=== PATIENT | female | born 1955 | race Caucasian/White ===

== ENCOUNTER 2025-07-13 05:16 | Observation (INO) ==
--- NOTE | 2025-07-08 09:05 | Anesthesiology Consultation ---
Date of Service July 08, 2025 Assessment & Plan (1) Encounter for pre-operative examination: Plan - check BSG am DOS. - semaglutide instructions: Patient informed at PAT visit to stop 7 days prior to surgery. - Outpatient joint assessment: Patient is currently scheduled for inpatient pathway. If re-evaluated and patient/surgeon requests outpatient pathway, patient is not a recommended candidate for outpatient joint program. - Procedure r/s to 07/13/25 as patient did not stop Ozempic or Jardiance per surgeon's office who advised patient is aware of necessary intervals. - Per bucket wash operator on 07/07/25: No known infectious disease contacts, current infectious disease symptoms in past 10 days or COVID positive test result in the past 30 days. Chart Review Chart Review: Acceptable Risk for Surgery and Patient NOT seen in Pre Admission Testing History Surgery Operation Date: 07/13/25 13:50 Proposed Procedures p Right Total Shoulder Arthroplasty Reverse - Jim Mcelroy MD Height/Weight Height: 5 ft 3 in Weight: 90.718 kg Allergies Allergy/AdvReac Type Severity Reaction Status Date / Time amoxicillin Allergy Unknown Per Verified 07/07/25 15:10 records, patient unaware simvastatin [From Zocor] AdvReac Unknown Hands got Verified 07/07/25 15:10 "stiff"/"calf pain" per S PCP records Medications Home Medications Medication Instructions Recorded Confirmed Last Taken acetaminophen 500 mg tablet 1,000 mg PO UD PRN Pain 06/17/25 07/07/25 Unknown (Tylenol Extra Strength) empagliflozin 25 mg tablet 25 mg PO QAM 06/17/25 07/07/25 06/27/25 10:00 (Jardiance) furosemide 20 mg tablet 20 mg PO QAM 06/17/25 07/07/25 06/30/25 10:00 isosorbide mononitrate 30 mg 30 mg PO QAM 06/17/25 07/07/25 06/30/25 10:00 tablet,extended release 24 hr losartan 50 mg tablet 25 mg PO HS 06/17/25 07/07/25 06/30/25 22:00 metformin 500 mg tablet 1,000 mg PO BID 06/17/25 07/07/25 06/30/25 22:00 metoprolol succinate 25 mg 12.5 mg PO HS 06/17/25 07/07/25 06/30/25 22:00 tablet,extended release 24 hr metoprolol succinate 25 mg 25 mg PO QAM 06/17/25 07/07/25 07/01/25 03:30 tablet,extended release 24 hr rosuvastatin 40 mg tablet 40 mg PO QAM 06/17/25 07/07/25 06/30/25 10:00 aspirin 81 mg capsule 81 mg PO QAM 07/07/25 07/07/25 Unknown semaglutide 1 mg/dose (4 mg/3 mL) 1 mg subcut WK 07/07/25 07/07/25 07/04/25 subcutaneous pen injector (Ozempic) Past Medical History Medical History CAD (coronary artery disease) 2020 > stents x2 CKD (chronic kidney disease) Stage 3a per PCP records Diabetes mellitus, type 2 NIDDM + GLP-1 weekly HTN (hypertension) Humerus fracture Right proximal humerus fracture (after mechnical fall 05/03/25) Hyperlipidemia Past Family History Family History Other No family history of adverse response to anesthesia Past Surgical History Surgical History History of anal fissures "Minor surgery" History of cardiac cath 2020 > stents x2 History of colonoscopy History of tonsillectomy Social History Smoking Status: Never smoker Do You Dip or Chew Tobacco: No Hx Alcohol Use: No Hx Substance Use: No substance use type: does not use Lab Results Anesthesia Preop Results Results Anesthesia Widget: WBC 8.28 K/ul (4.8-10.8) 06/22/25 Hgb 11.4 g/dl (12.0-16.0) L 06/22/25 Hct 34.2 % (37.0-47.0) L 06/22/25 Plt 314 K/uL (130-400) 06/22/25 Na 140 mmol/L (136-145) 06/22/25 K 4.5 mmol/L (3.5-5.1) 06/22/25 Cl 105 mmol/L (98-107) 06/22/25 CO2 29 mmol/L (21-32) 06/22/25 BUN 21 mg/dl (6-23) 06/22/25 Creat 0.90 mg/dl (0.6-1.2) 06/22/25 Glucose Level 95 mg/dl (70-99(Fasting)) 06/22/25 POC Glucose 96 mg/dl (70-99) 07/01/25 PT 11.0 Seconds (9.0-12.0) 06/22/25 PTT 28 Seconds (21-31) 06/22/25 INR 1.0 (0.9-1.1) 06/22/25 HA1c 5.3 % (4.5-5.6) 06/22/25 Urine Color Yellow 06/22/25 Urine Appearance Clear (Clear) 06/22/25 Urine pH 6.0 (4.5-7.5) 06/22/25 Urine Specific Harman 1.019 (1.000-1.030) 06/22/25 Urine Protein Negative (Negative) 06/22/25 Urine Glucose (UA) 3+ (Negative) H 06/22/25 Urine Ketones Negative (Negative) 06/22/25 Urine Blood Negative (Negative) 06/22/25 Urine Nitrite Negative (Negative) 06/22/25 Urine Bilirubin Negative (Negative) 06/22/25 Urine Urobilinogen Negative (Negative) 06/22/25 Urine Leukocyte Esterase Negative (Negative) 06/22/25 Blood Type O Positive 06/22/25 Antibody Screen NEGATIVE 06/22/25 Testing Electrocardiogram Date: 04/10/25 Sinus rhythm with 1st degree AV block, rate 71 bpm Left axis deviation Nonspecific intraventricular conduction block Possible anterolateral infarct cited on or before 05/07/2017 EKG No significant change vs 02/27/2023 EKG Echocardiogram Date: 04/11/25 EF 50-54% Mild aortic valve regurgitation Mild aortic valve sclerosis without stenosis Mild cLVH Grade I diastolic dysfunction Stress Test Date: 04/11/25 Per original anesthesia note 06/22/25: "[facility] discharge summary 04/11/25: "Nuclear stress test was limited but did not show any overt ischemia and ECHO showed preserved LVEF." [facility] PCP hospital f/u visit 04/18/25: "Patient's chest pain resolved and has not returned since hospital discharge. Her stress test and echocardiogram did not reveal any ischemia and showed a normal ejection fraction. It is thought that her chest pain is more related to her anxiety... During her admission, she unde rwent a stress test that returned normal results" Multiple attempts to obtain official stress test report from [facility] unsuccessful, may have "lost" report per statistical secretary notation." Cardiac Catheterization Date: 04/18/20 Severe three-vessel CAD: Mid LAD 90%; proximal OM1 70%; mid RCA 100% TECHNICAL SERVICES ANALYST with LR collaterals. PCI to mid LAD stenosis with [place] GALLITO. PCI to LCx into OM stenosis with [place] GALLITO. Mid RCA is 100% occluded with LR collaterals. Other Testing Chest CT 05/03/25 Comminuted fracture of the right humeral head and surgical neck. Poor inspiration with mild dependent atelectasis in both lung bases. No areas of consolidation. No effusions or pneumothoraces. Degenerative changes in the thoracic spine but no acute fracture of the thoracic spine or ribs. "This does not exclude bone bruising or injury to the anterior costochondral junctions. If clinically indicated recommend more sensitive evaluation with a nuclear medicine bone scan."
[2025-07-13] MEDS: LR 15ML/HR IV SCH (06:01)
[2025-07-13] MEDS: LR 60ML/HR IV SCH (06:01)
[2025-07-13] MEDS: METOCLOPRAMIDE HCL 10 MG TABLET PO SCH (06:01)
[2025-07-13] MEDS: CeleBREX 200 MG CAP PO SCH (06:01)
[2025-07-13] MEDS: ACETAMINOPHEN 500 MG TAB PO SCH ×2 (06:01→14:01)
[2025-07-13] MEDS: FAMOTIDINE 20 MG TAB PO SCH (06:01)
[2025-07-13] MEDS: GABAPENTIN 300 MG CAP PO SCH (06:01)
[2025-07-13] MEDS ORDERED: LIDOCAINE 2% 2 ML VIAL/AMP(20MG/ML) INFIL ONE ×2 (06:24→06:33)
[2025-07-13] MEDS ORDERED: PROPOFOL IV EMULSION 10 MG/ML 20 ML VIAL IV ONE (06:24)
[2025-07-13] MEDS ORDERED: ROCURONIUM BROMIDE 10 MG/ML 5 ML VIAL IV ONE ×2 (06:24→06:25)
[2025-07-13] MEDS ORDERED: MIDAZOLAM HCL 1 MG/ML 2ML VIAL ONE (06:25)
[2025-07-13] MEDS ORDERED: BUPIVACAINE 0.5 % 5 MG/1 ML PF 10ML VIAL ONE (06:33)
--- NOTE | 2025-07-13 07:08 | History & Physical Bridge Note ---
Date of Service July 13, 2025 History & Physical Bridge Note I have examined the patient, reviewed the History & Physical and in the interval since the performance of the History & Physical I have noted the following changes of clinical significance: no changes noted
[2025-07-13] MEDS: TRANEXAMIC ACID 1,000 MG **IV Pre-op IV SCH (07:11)
[2025-07-13] MEDS ORDERED: ONDANSETRON INJ 2 MG/ML 2 ML VIAL IV PRN ×2 (07:57→12:44)
[2025-07-13] MEDS ORDERED: ATROPINE SULFATE 0.1 MG/ML 10ML SYR IV PRN (07:57)
[2025-07-13] MEDS ORDERED: PROMETHAZINE HCL 6.25 MG in SODIUM CHLORIDE 0.9% 50 ML IV PRN (07:57)
[2025-07-13] MEDS ORDERED: PHENYLEPHRINE HCL 10 MG/ML VIAL ONE (08:08)
[2025-07-13] MEDS ORDERED: DEXAMETHASONE SOD INJ 4 MG/ML VIAL ONE (09:57)
[2025-07-13] MEDS ORDERED: ONDANSETRON INJ 2 MG/ML 2 ML VIAL ONE (09:57)
--- NOTE | 2025-07-13 11:18 | Post Operative Brief Note ---
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 and ruptured biceps tendon long head I identified the patient and participated in the time-out.: Yes Procedure Operation Date: 07/13/25 07:00 Actual Procedures p Right Fractured Reverse Total Shoulder Arthroplasty(Right), osteotomy and repair and bone grafting tuberosities- Jim Mcelroy MD Surgeon Jim Mcelroy MD Services Tech Nigel BOUCHER Estimated Blood Loss 50 Findings Consistent with Post-Op Diagnosis Specimens Bone fragments humerus Drains Hemovac Drain Anesthesia Type General Regional Complications none Disposition Disposition: Recovery Room Overlapping Procedure I was immediately available: during the entire case.
--- NOTE | 2025-07-13 11:52 | Operative Report ---
Post Operative Report Pre & Post Diagnosis Operation Date: 07/13/25 07:00 Pre-Op Diagnosis: Right Shoulder comminuted and displaced proximal Humerus Fracture with nonunion Post-Op Diagnosis: Right Shoulder comminuted and displaced proximal humerus fracture with nonunion and proximal biceps tendon rupture. I identified the patient and participated in the time-out.: Yes Procedure Operation Date: 07/13/25 07:00 Actual Procedures Right Fractured Reverse Total Shoulder Arthroplasty requiring osteotomy of tuberosities and repair and bone grafting of tuberosities and proximal implant.- Jim Mcelroy MD Surgeon Jim Mcelroy MD Machine Wood Sander Nigel BOUCHER Estimated Blood Loss 50 Findings Consistent with Post-Op Diagnosis Specimens Bone fragments Drains 2 Hemovac Anesthesia Type General Regional Complications none Disposition Disposition: Recovery Room Indications 69-year-old female who injured her right shoulder sustained a comminuted proximal humerus fracture which was initially treated with nonsurgical conservative management but the shaft displaced anteriorly with 100% displacement and there was a fair amount of comminution noted on CT scan. This went on to nonunion with nonfunctional use of her right arm due to rotational instability. Description of Procedure Patient was taken to the operating room anesthetized under regional block and general anesthetic. Patient was placed in the beachchair position. A towel roll was placed under the medial border of the right scapula. The head was placed on a foam headrest. Protective eyewear was placed. SCDs were placed. All extremities were well-padded. Shoulder exam demonstrated anterior prominence consistent with the shaft being displaced anterior to the coracoid and rotational instability consistent with nonunion. There was moderate obesity. The shoulder was sterilely prepped and draped in usual sterile fashion with ChloraPrep. An anterior deltopectoral approach was performed. The skin was incised sharply in longitudinal fashion. Subcutaneous flaps were elevated. The deltopectoral interval was identified. The cephalic vein was not present. The deltopectoral interval was developed. It was noted that the shaft of the humerus was underlying the deltoid and displaced anterior to the coracoid with some of the lower conjoined tendon draped over the fracture site. 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 The conjoined tendon which was enveloped in scar tissue was was identified and carefully dissected away from the scar tissue and underlying subscapularis tendon and retracted medially. The upper 1 cm of the pectoralis was released for inferior exposure. The biceps tendon findings demonstrated long head biceps was absent. There was scar tissue around the rotator cuff and this was dissected free of the rotator cuff. The humeral head neck was comminuted and the humeral head was internally rotated and abducted. The humeral head fragment was osteotomized from the tuberosity fragments using an artist chisel type osteotome. #1 Vicryl's traction sutures were placed around the greater tuberosity posteriorly and separately around the lesser tuberosity anteriorly. The supraspinatus was released and the teres minor and infraspinatus were maintained intact to the bone fragment of the greater tuberosity posteriorly. The humeral head was then removed and some comminuted fragments were removed. The glenoid findings demonstrated normal glenoid with intact articular cartilage and normal labrum with absent biceps. The Tornier reverse total shoulder replacement was utilized with the Tornier fracture stem. The shaft had more intact bone anteriorly than posteriorly with a slight oblique bone loss to the fracture. The canal was patent and intact. There was fibrous tissue that was resected from within the canal and the edges of the proximal shaft were all fully identified using a subperiosteal dissection around the shaft with a Madsen elevator to mobilize the shaft. Attention was then taken to the glenoid exposure which was performed removing the labrum and performing anterior-inferior and posterior capsule release and triceps tendon release. Dissection was performed on bone to protect the axillary nerve. Retractors were placed to expose the glenoid. Patient had a very small glenoid so we used a 25 mm baseplate.. Any remaining cartilage on the glenoid was removed with a curette. The guide for the aequalis baseplate was positioned with 10 degrees inferior tilt and central drill hole was made. The reamer was used. The bone quality was good. The central drill hole was widened for the post. The glenoid was irrigated with pulsatile lavage saline solution. The 25 millimeter aequalis hydroxyapatite-coated baseplate was impacted into position with excellent fit. This was transfixed with superior and inferior locking screws and anterior posterior compression screws. The 36 x 25 glenoid sphere was impacted onto the baseplate and the security screw tightened. This was checked for stability and was intact and stable. Attention taken to the humerus. Humeral canal was reamed and size 9 millimeters stem was chosen. Height of the implant when impacted was documented and rotation was placed with the rotational michelle in line with the forearm. Trial reduction demonstrated that a size 12 mm reversed trial polyethylene insert gave stability and no shuck. The trial was removed and the canal was irrigated with pulsatile lavage saline solution. Four #5 FiberWire sutures were first passed around the posterior greater tuberosity fragments. Two #5 FiberWire sutures were placed through drill holes into the shaft and docked for later tying. The cement restrictor was placed at the appropriate depth in the canal of the humerus. Bone graft was harvested from the humeral head and the bone graft inserted into the hole in the humeral implant. The 9 x 130 mm aequalis fracture reversed stem humeral implant was cemented into position with Pal[place]os G cement. After the cement cured the 36/12 mm reversed polyethylene insert was impacted into the humeral implant. 4 tails of the suture were passed around the implant prior to reducing it to the glenoid sphere. Joint was irrigated with Irrisept and saline. The tuberosities posteriorly were then sutured to the stem after placing bone graft between the hydroxyapatite portion of the stem the shaft and the tuberosity fragments. The arm was rotated and the posterior tuberosities were secured with rotation. Sutures were then passed around the lesser tuberosity fragments through the subscapularis tendon and then bone graft was placed underlying these fragments and the humeral implant and the shaft area. The other two #5 FiberWire sutures were tied around the lesser tuberosity fragment suturing that to the shaft and the lesser to the greater tuberosity fragments together. The Vicryl sutures were tied to each other for added security. The shaft sutures were placed in [id number] fashion around the tuberosity fracture fragments anteriorly and posteriorly to secure the tuberosity fracture fragments to the shaft. The repair was stable with passive range of motion and range of motion was 120 degrees forward flexion 90 degrees abduction and 30 degrees external rotation and 60 degrees internal rotation without tension on repair. The pectoralis tendon was repaired with [id number] #1 Vicryl suture. After further Irrisept and saline irrigation 2 Hemovac drains were brought out laterally. The deltopectoral interval was repaired with [id number] #1 Vicryl sutures. The subcutaneous tissue closed into 2-0 Vicryl sutures. Skin was closed with radha. Sterile dressings were applied and a shoulder immobilizer. Nigel BOUCHER was my educational program assistant and assisted throughout the procedure including prepping draping arm positioning soft tissue retraction suture management wound closure and postop care the patient. I attest to the content of the Intraoperative Record and any orders documented therein. Any exceptions are noted below.
--- NOTE | 2025-07-13 11:59 | Anesthesiology Progress Note ---
Date of Service July 13, 2025 Anesthesia Post Procedure Vital Signs Vital Signs: Temp Pulse Pulse Resp BP Pulse Ox O2 Del Method 07/13/25 11:50 36.3 C L 67 19 135/72 94 Room Air 07/13/25 11:40 72 19 134/75 95 Room Air 07/13/25 11:34 36 C L 76 16 138/79 96 Oxymask 07/13/25 05:49 36.5 C 71 20 148/76 H 100 Room Air O2 Flow Rate 07/13/25 11:50 07/13/25 11:40 07/13/25 11:34 6 07/13/25 05:49 Transfer of Care Handoff Completed per policy Notes Mental Status: alert / awake / arousable and participated in evaluation Patient Amnestic to Procedure: Yes Nausea / Vomiting: adequately controlled Pain: adequately controlled Airway Patency, RR, SpO2: stable & adequate BP & HR: stable & adequate Hydration State: stable & adequate Anesthetic Complications: no major complications apparent
--- NOTE | 2025-07-13 12:42 | XRay Report ---
XR shoulder RT min 2V routine CLINICAL HISTORY: Post shoulder surgery COMPARISON: None FINDINGS: Right shoulder prosthesis shows no hardware complication. Skin radha are present. Postop erative drain is present. There is expected soft tissue gas. IMPRESSION: Unremarkable postoperative exam. ACT 112: Negative or not required by law. Electronically signed by: Shalom Canada M.D. 07/13/2025 12:41 PM
[2025-07-13] MEDS ORDERED: HYDROmorphone INJ 0.5 MG/0.5 ML SYR IV PRN (12:44)
[2025-07-13] MEDS ORDERED: METOCLOPRAMIDE HCL INJ 5 MG/ML 2 ML VIAL IV PRN (12:44)
[2025-07-13] MEDS ORDERED: diphenhydrAMINE Capsule 25 MG CAP PO PRN (12:44)
[2025-07-13] MEDS ORDERED: KETOROLAC TROMETHAMINE 15 MG/ML VIAL IV PRN (12:44)
[2025-07-13] MEDS ORDERED: ALUMINUM/MAGNESIUM SUSP 30 ML UDC PO PRN (12:44)
[2025-07-13] MEDS ORDERED: NALOXONE HCL 0.4 MG/1 ML VIAL/CARP IV PRN (12:44)
[2025-07-13] MEDS ORDERED: PHARMACY GLYCEMIC MGMT CONSULT PRN (12:44)
[2025-07-13] MEDS ORDERED: MAGNESIUM HYDROXIDE SUSP 30 ML UDC PO PRN (12:44)
[2025-07-13] MEDS: SODIUM CHLORIDE 0.9% 1,000 ML IV SCH (13:08)
--- NOTE | 2025-07-13 13:17 | Consultation ---
Date of Consultation July 13, 2025 Assessment & Plan (1) S/P shoulder surgery: (2) Fracture, humerus, proximal: Post op day# 0 S/P right reverse total shoulder arthroplasty requiring osteotomy of tuberosities and repair and bone grafting of tuberosities and proximal implant by Dr Mcelroy EBL #50ml Pain management per ortho Wound management per ortho PT/OT as appropriate DVT prophylaxis per ortho Incentive spirometry Monitor H&H for acute blood loss anemia; Pre-op Hgb: 11.4 (3) HTN (hypertension): (4) Hyperlipidemia: (5) CAD (coronary artery disease): CAD S/P Stents in 2019 BP stable Hold losartan tonight and reassess BP Continue metoprolol succinate, aspirin, rosuvastatin, isosorbide (6) Chronic combined systolic (congestive) and diastolic (congestive) heart failure: Currently appears euvolemic 04/11/25 echo: EF: 50-54%, mild aortic regurgitation Hold Lasix and reassess tomorrow (7) Diabetes mellitus, type 2: A1c: 6.5 on 04/11/25 Hold home metformin, Jardiance, Ozempic Glycemic pharmacist managing. Appreciate glycemic management (8) CKD (chronic kidney disease), stage III: Baseline Cr: 1.0-1.2 per outpatient chart review Monitor renal functions Would avoid nephrotoxic agents including NSAIDs as able (9) GERD (gastroesophageal reflux disease): Continue PPI DVT Prophylaxis SCDs per ortho Disposition per primary service Follows with Jae Calabrese PA-C for routine care Pt was seen and care coordinated with Dr Fleming. See addendum I spent a total of 45 minutes reviewing notes, outpatient records, labs, medication, coordinating, documenting and providing care for this patient excluding time spent in the performance of separately billed services and excluding time spent by another provider/QHP. Supervising Physician Co-Signing Physician Notes Patient seen and examined at bedside. Patient doing well today post op, family in room, denies pain. On exam, right shoulder in slight with drain present, patient laying comfortably. Mild bilateral LE tenderness to palpation without edema. Post op xray of shoulder unremarkable. Patient post op day 0 for shoulder arthroplasty with osteotomy of tuberosities and repair and bone grafting of tuberosities and proximal implant by Dr Mcelroy. Monitor Hgb, leukocytosis, creatinine post op. Encourage ambulation and pain control as appropriate. Medication regiment post op simplified to reduce polypharmacy. I have seen and discussed the case with the collaborating advanced practitioner. I agree with the above H&P. I have reviewed and confirmed the patients medical history, the findings on physical examination, and the patients diagnosis and treatment plan with Nighat Art PA-C and agree with the information documented. I spent a total of 15 minutes coordinating, documenting, and providing care for this patient excluding time spent in the performance of separately billed services. All of the aforementioned completed outside of collaborating with the assigned advanced practitioner for a full treatment plan. I have reviewed the advanced practitioner's documentation, and I agree with, and take responsibility for the plan of care History of Present Illness Requesting Physician: Dr Mcelroy Reason for Consultation: Post op medical management Attending Physician: Jim Mcelroy MD History of Present Illness Patient is 69-year-old female with PMH DM II, HTN, dyslipidemia, CAD s/p stent, chronic combined heart failure, moderate persistent asthma, CKD III, anxiety seen in medical consultation s/p right fractured reverse total shoulder arthroplasty requiring osteotomy of tuberosities and repair and bone grafting of tuberosities and proximal implant by Dr Mcelroy today. Post op patient reports is doing well and pain controlled. Still having some right arm paresthesias. Reports is right hand dominant. Reports last BM 3 days ago and has chronic constipation. Denies fever/chills, diaphoresis, N/V/D, BAUMANN, dizziness, neck pain, CP, SOB, palpitations, cough, abdominal pain, extremity edema, rashes, urinary symptoms. Allergies Allergy/AdvReac Type Severity Reaction Status Date / Time amoxicillin Allergy Unknown Per Verified 07/13/25 05:43 records, patient unaware simvastatin [From Zocor] AdvReac Unknown Hands got Verified 07/13/25 05:43 "stiff"/"calf pain" per [facility] PCP records Home Medications Medication Instructions Recorded Confirmed Type acetaminophen 500 mg tablet 1,000 mg PO UD PRN Pain 06/17/25 07/13/25 History (Tylenol Extra Strength) empagliflozin 25 mg tablet 25 mg PO QAM 06/17/25 07/13/25 History (Jardiance) furosemide 20 mg tablet (Lasix) 20 mg PO QAM 06/17/25 07/13/25 History isosorbide mononitrate 30 mg 30 mg PO QAM 06/17/25 07/13/25 History tablet,extended release 24 hr losartan 50 mg tablet 25 mg PO HS 06/17/25 07/13/25 History metformin 500 mg tablet 1,000 mg PO BID 06/17/25 07/13/25 History metoprolol succinate 25 mg 12.5 mg PO HS 06/17/25 07/13/25 History tablet,extended release 24 hr metoprolol succinate 25 mg 25 mg PO QAM 06/17/25 07/13/25 History tablet,extended release 24 hr rosuvastatin 40 mg tablet (Crestor) 40 mg PO QAM 06/17/25 07/13/25 History aspirin 81 mg capsule 81 mg PO QAM 07/07/25 07/13/25 History semaglutide 1 mg/dose (4 mg/3 mL) 1 mg subcut WK 07/07/25 07/13/25 History subcutaneous pen injector (Ozempic) acetaminophen 500 mg tablet 1,000 mg (2 x 500 mg) PO Q8H #90 07/13/25 07/13/25 Rx (Tylenol Extra Strength) tabs aspirin 81 mg tablet,delayed 81 mg PO BID #60 tabs 07/13/25 07/13/25 Rx release cefadroxil 500 mg capsule 500 mg PO Q12H #28 caps 07/13/25 07/13/25 Rx celecoxib 200 mg capsule (Celebrex) 200 mg PO Q12H #60 caps 07/13/25 07/13/25 Rx oxycodone 5 mg tablet 5 mg PO Q4H PRN pain #30 tabs 07/13/25 07/13/25 Rx Patient History Medical History (Updated 07/13/25 @ 13:39 by Nighat Art PA-C) GERD (gastroesophageal reflux disease) Chronic combined systolic (congestive) and diastolic (congestive) heart failure CKD (chronic kidney disease), stage III Diabetes mellitus, type 2 NIDDM + GLP-1 weekly CKD (chronic kidney disease) Stage 3a per PCP records CAD (coronary artery disease) 2020 > stents x2 Humerus fracture Right proximal humerus fracture (after mechnical fall 05/03/25) Hyperlipidemia HTN (hypertension) Surgical History (Updated 07/13/25 @ 13:52 by Nighat Art PA-C) Status post reverse arthroplasty of right shoulder right fractured reverse total shoulder arthroplasty requiring osteotomy of tuberosities and repair and bone grafting of tuberosities and proximal implant by Dr Mcelroy 07/13/25. [facility] History of anal fissures "Minor surgery" History of tonsillectomy History of colonoscopy History of cardiac cath 2020 > stents x2 Family History Other No family history of adverse response to anesthesia Social History Smoking Status: Never smoker Second Hand Exposure: No; Do You Dip or Chew Tobacco: No; Tobacco Cessation Education Requested by Patient: No Hx Alcohol Use: No Hx Substance Use: No Preferred Language: [place] Communication Ability: Effective Domestic Violence Counselor Required: No Beliefs That Will Affect Care: None Current Living Situation: Family Current Living Situation Comment: live with my sister Other Information That Helps Us Care for You: No Feels Safe at Home: Yes Safety Concerns: Feels Safe At This Time Assistive Devices: Brace/Splint/Immobilizer, Denture - Upper, Glasses and Hearing Aid - Bilateral Review of Systems Review of Systems: All systems reviewed & are unremarkable except as noted in HPI & below Physical Exam Physical Exam: General: no distress, obese female Head: normocephalic, atraumatic Eyes: conjunctiva non-injected, anicteric ENT: normal inspection external ears, nose, mucous membranes moist Neck: supple, trachea midline Lungs: clear, no respiratory distress, no wheezing/rhonchi/rales CV: RRR, no pretibial edema Abd: normal BS, soft, non-tender Ext: RUE: +sling in place, +surgical dressing in place is dry. Sensation to light touch fingers intact, brisk capillary refill, right internet ecommerce specialist strength in place. BLE no cyanosis, no calf tenderness Neuro: A&O x 3, no focal deficits noted, normal affect Skin: warm, dry Results & Data Vital Signs (Past 12 Hours) Vital Signs Temp Pulse Pulse Resp BP Pulse Ox O2 Del Method 07/13/25 12:44 36.5 C 68 18 120/74 94 Room Air 07/13/25 12:30 66 18 130/65 94 Room Air 07/13/25 12:15 68 17 148/76 H 95 Room Air 07/13/25 12:00 69 15 127/65 94 Room Air 07/13/25 11:50 36.3 C L 67 19 135/72 94 Room Air 07/13/25 11:40 72 19 134/75 95 Room Air 07/13/25 11:34 36 C L 76 16 138/79 96 Oxymask 07/13/25 05:49 36.5 C 71 20 148/76 H 100 Room Air O2 Flow Rate 07/13/25 12:44 07/13/25 12:30 07/13/25 12:15 07/13/25 12:00 07/13/25 11:50 07/13/25 11:40 07/13/25 11:34 6 07/13/25 05:49 Diagnostic Findings Shoulder X-Ray 07/13/25 11:39 XR shoulder RT min 2V routine CLINICAL HISTORY: Post shoulder surgery COMPARISON: None FINDINGS: Right shoulder prosthesis shows no hardware complication. Skin radha are present. Postoperative drain is present. There is expected soft tissue gas. IMPRESSION: Unremarkable postoperative exam. ACT 112: Negative or not required by law. Electronically signed by: Shalom Canada M.D. 07/13/2025 12:41 PM (2) Fracture, humerus, proximal Encounter type: initial encounter Fracture alignment: displaced Fracture mo rphology: other fracture Fracture type: closed Laterality: right Qualified Code(s): S42.291A - Other displaced fracture of upper end of right humerus, initial encounter for closed fracture
[2025-07-13 13:24] VITALS: RESP 16
[2025-07-13] MEDS: BUPIVACAINE LIPOSOME 1.3% 133 MG/10 ML VIAL ONE (13:27)
[2025-07-13] MEDS ORDERED: DEXTROSE 50% 50 ML SYRINGE IV PRN (13:30)
[2025-07-13] MEDS ORDERED: GLUCOSE 10 TAB/TUBE PO PRN (13:30)
[2025-07-13] MEDS ORDERED: GLUCAGON FOR INJ 1 MG VIAL SQ PRN (13:30)
[2025-07-13] MEDS ORDERED: GLUCOSE 40% GEL 15 GM TUBE PO PRN (13:30)
[2025-07-13] MEDS ORDERED: CARBOHYDRATES FOR HYPOGLYCEMIA PO PRN (13:30)
--- NOTE | 2025-07-13 14:19 | Pharmacy Report ---
Pharmacy Glycemic Short Note 2 - Date of Service July 13, 2025 - Glycemic Short BSG Results (Last 24 hours): 07/13/25 07/13/25 05:38 11:38 POC Glucose 105 H 91 OUTPATIENT ANTIDIABETIC REGIMEN: * Metformin * Empagliflozin * Semaglutide A1c = 5.3% ASSESSMENT: * Cindy is POD# 0 s/p right reverse total shoulder arthroplasty * Home anti-diabetic agents have been held in the setting of surgery. * Given A1c of 5.3% and baseline BSG of 105 and 91 mg/dL, I suspect patient may not require basal insulin. Will order a one time, conservative dose per scale for bedtime. Further need for basal insulin can be determined tomorrow. * Start Novolog based on weight/stress 2 PLAN FOR INPATIENT GLYCEMIC CONTROL: * Hold outpatient oral diabetes medications * Basal insulin * Lantus 0-10 units units SQ BID (10 units if BSG is 160 or more) * Bolus insulin * NovoLog per scale ACHS or Q6hrs while NPO * Goal Range: Low 110 mg/dL - High 140 mg/dL * Correction Factor: 25 mg/dL/unit * Nutritional / Prandial insulin per carb ratio of 1 unit per 10 grams CHO consumed
[2025-07-13] MEDS: INSULIN ASPART PER UNIT CHARGE SC SCH (17:06)
[2025-07-13] MEDS: TRANEXAMIC ACID / 0.7% NACL 1,000 MG/100 ML BAG IV SCH (17:10)
[2025-07-13] MEDS: METOPROLOL SUCC 25MG EXT REL TAB PO SCH (20:41)
[2025-07-13] MEDS: LANTUS PER UNIT CHARGE SC SCH (20:43)
[2025-07-13] MEDS: DOCUSATE SODIUM 100 MG CAP PO SCH (20:47)
[2025-07-13] MEDS: SENNA 8.6 MG TAB PO SCH (20:47)
[2025-07-13] MEDS ORDERED: LOSARTAN POTASSIUM 25 MG TAB PO SCH (21:00)
[2025-07-14 07:06] LABS: Hematocrit (blood only) 33.8 % (37.0-47.0); Hemoglobin 11.5 g/dl (12.0-16.0); Immature Granulocytes # (auto) 0.05 K/uL (0.01-0.20); Immature Granulocytes % (auto) 0.4 %; Mean Corpuscular Hemoglobin 35.3 pg (25.0-34.0); Mean Corpuscular Volume 103.7 fL (80.0-100.0); Platelet Count 256 K/uL (130-400); RDW Standard Deviation 46.2 fL (36.4-46.3); Red Blood Count 3.26 M/uL (4.20-5.40); White Blood Count 12.15 K/ul (4.8-10.8)
[2025-07-14 07:17] VITALS: BP 104/66; PULSE 79; TEMP 97.5; O2SAT 97
[2025-07-14 07:32] LABS: Anion Gap 5.0 (3-11); Blood Urea Nitrogen 21.0 mg/dl (6-23); Calcium 8.8 mg/dl (8.6-10.3); Carbon Dioxide 26.0 mmol/L (21-32); Chloride 106.0 mmol/L (98-107); Creatinine Clr Calc Pharmacy 46.7 ml/min; Glucose 110.0 mg/dl (70-99(Fasting)); Potassium 4.3 mmol/L (3.5-5.1); Sodium 137.0 mmol/L (136-145)
--- NOTE | 2025-07-14 07:51 | Orthopedic Progress Note ---
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 From orthopedic standpoint I think she can be discharged home. Have medical consult evaluate patient from medical standpoint for discharge. If patient cleared for discharge then would discontinue Hemovac drain later today. Recommend holding off on any formal physical therapy immed iately postop. Will allow some healing of the repairs for 2 to 3 weeks prior to starting PT but can do home exercises typical for reverse TSA. Can loosen sling to do elbow range of motion as tolerated and use while arm to assist range of motion of shoulder in safe zone. Follow-up in office in 2 weeks for staple removal. (2) Fracture, humerus, proximal: Admission and Anticipated Discharge Date Admission Date: July 13, 2025 Subjective No complaints feels well. No pain in shoulder some pain in elbow Physical Exam Physical Exam: Distal circulation sensorimotor exam intact dressing dry and intact. Shoulder normally located no pain with gentle passive range of motion. Results & Data Vital Signs (Past 12 Hours) Vital Signs Temp Pulse Pulse Resp BP Pulse Ox O2 Del Method 07/14/25 07:17 Room Air 07/14/25 07:15 36.4 C L 79 16 104/66 97 Room Air 07/14/25 03:19 36.6 C 74 16 130/76 94 Room Air 07/13/25 22:58 36.3 C L 97 H 16 114/71 97 Room Air Diagnostic Findings X-rays demonstrate fracture stem cemented in position with repair tuberosities proximal normally located reversed replacement. (2) Fracture, humerus, proximal Encounter type: initial encounter Fracture type: closed Fracture morphology: other fracture Fracture alignment: displaced Laterality: right Qualified Code (s): S42.291A - Other displaced fracture of upper end of right humerus, initial encounter for closed fracture
[2025-07-14] MEDS: ROSUVASTATIN CALCIUM 20 MG TAB PO SCH (08:06)
[2025-07-14] MEDS: ISOSORBIDE MONO EXTENDED REL 30 MG TABCR PO SCH (08:06)
[2025-07-14] MEDS: MULTIVITAMIN TAB PO SCH (08:06)
[2025-07-14] MEDS: METOPROLOL SUCC 25MG EXT REL TAB PO SCH (08:07)
[2025-07-14] MEDS: ASPIRIN 81 MG ECTAB PO SCH (08:07)
[2025-07-14] MEDS: dexAMETHasone 10 MG in SYRINGE 0 ML IV SCH (08:08)
[2025-07-14] MEDS ORDERED: EMPAGLIFLOZIN 25 MG TAB PO SCH (09:00)
[2025-07-14] MEDS ORDERED: FUROSEMIDE 20 MG TAB PO SCH (09:00)
--- NOTE | 2025-07-14 09:40 | Hospitalist Progress Note ---
Date of Service July 14, 2025 Assessment & Plan (1) S/P shoulder surgery: (2) Fracture, humerus, proximal: Plan: Post op day# 1 S/P right reverse total shoulder arthroplasty requiring osteotomy of tuberosities and repair and bone grafting of tuberosities and proximal implant by Dr Lilibeth DIETRICH #50ml Pain management per ortho Wound management per ortho PT/OT as appropriate DVT prophylaxis per ortho Incentive spirometry Pre-op Hgb: 11.4, hemoglobin stable postoperatively (3) HTN (hypertension): (4) Hyperlipidemia: (5) CAD (coronary artery disease): Plan: CAD S/P Stents in 2019 BP stable continue to hold losartan and furosemide iso relative hypotension Continue metoprolol succinate, aspirin, rosuvastatin, isosorbide (6) Chronic combined systolic (congestive) and diastolic (congestive) heart failure: Plan: Currently appears euvolemic 04/11/25 echo: EF: 50-54%, mild aortic regurgitation Hold Lasix for now iso OMAIRA (7) Diabetes mellitus, type 2: Plan: A1c: 6.5 on 04/11/25 Hold home metformin, Jardiance, Ozempic Glycemic pharmacist managing. Appreciate glycemic management (8) CKD (chronic kidney disease), stage III: Plan: Baseline Cr: 1.0-1.2 per outpatient chart review Monitor renal functions Would avoid nephrotoxic agents including NSAIDs as able watching renal function, at baseline for patient (9) GERD (gastroesophageal reflux disease): Plan: Continue PPI DVT Prophylaxis SCDs per ortho Disposition per primary service, patient medically stable for discharge with planned PCP follow up Follows with Jae Calabrese PA-C for routine care Admission and Anticipated Discharge Date Admission Date: July 13, 2025 Subjective Patient doing well overall today, eager for possible discharge Denies any issues with urine output or other concerns. Reports no chest pain, dizziness, or other acute concerns realtively hypotensive postoperatively, however, asymptomatic Physical Exam Constitutional: WD/WN, vitals as above Respiratory: normal respiratory effort, lungs clear to auscultation Cardiovascular: RRR, no murmur, no edema Gastrointestinal (Abdomen): normal bowel sounds, soft, nontender, no hepatosplenomegaly Musculoskeletal: right arm in sling, bandages clean dry and intact Results & Data Results & Data Vital Signs (Past 12 Hours) Vital Signs Temp Pulse Pulse Resp BP Pulse Ox O2 Del Method 07/14/25 07:17 Room Air 07/14/25 07:15 36.4 C L 79 16 104/66 97 Room Air 07/14/25 03:19 36.6 C 74 16 130/76 94 Room Air 07/13/25 22:58 36.3 C L 97 H 16 114/71 97 Room Air Laboratory Results Short CBC 07/14/25 Range/Units 06:52 WBC 12.15 H (4.8-10.8) K/ul Hgb 11.5 L (12.0-16.0) g/dl Hct 33.8 L (37.0-47.0) % Plt Count 256 (130-400) K/uL BMP 07/14/25 06:52 Sodium 137 Potassium 4.3 Chloride 106 Carbon Dioxide 26 BUN 21 Creatinine 1.23 H Glucose 110 H Calcium 8.8 Medications Administered Home Medications Medication Instructions Recorded Confirmed Last Taken acetaminophen 500 mg tablet 1,000 mg PO UD PRN Pain 06/17/25 07/13/25 07/12/25 21:00 (Tylenol Extra Strength) empagliflozin 25 mg tablet 25 mg PO QAM 06/17/25 07/13/25 07/09/25 (Jardiance) furosemide 20 mg tablet (Lasix) 20 mg PO QAM 06/17/25 07/13/25 07/12/25 10:00 isosorbide mononitrate 30 mg 30 mg PO QAM 06/17/25 07/13/25 07/12/25 10:00 tablet,extended release 24 hr losartan 50 mg tablet 25 mg PO HS 06/17/25 07/13/25 07/12/25 22:00 metformin 500 mg tablet 1,000 mg PO BID 06/17/25 07/13/25 07/12/25 22:00 metoprolol succinate 25 mg 12.5 mg PO HS 06/17/25 07/13/25 07/12/25 22:00 tablet,extended release 24 hr metoprolol succinate 25 mg 25 mg PO QAM 06/17/25 07/13/25 07/13/25 03:00 tablet,extended release 24 hr rosuvastatin 40 mg tablet (Crestor) 40 mg PO QAM 06/17/25 07/13/25 07/12/25 10:00 aspirin 81 mg capsule 81 mg PO QAM 07/07/25 07/13/25 07/09/25 semaglutide 1 mg/dose (4 mg/3 mL) 1 mg subcut WK 07/07/25 07/13/25 07/04/25 subcutaneous pen injector (Ozempic) acetaminophen 500 mg tablet 1,000 mg (2 x 500 mg) PO Q8H #90 07/13/25 07/13/25 Unknown (Tylenol Extra Strength) tabs aspirin 81 mg tablet,delayed 81 mg PO BID #60 tabs 07/13/25 07/13/25 Unknown release cefadroxil 500 mg capsule 500 mg PO Q12H #28 caps 07/13/25 07/13/25 Unknown celecoxib 200 mg capsule (Celebrex) 200 mg PO Q12H #60 caps 07/13/25 07/13/25 Unknown oxycodone 5 mg tablet 5 mg PO Q4H PRN pain #30 tabs 07/13/25 07/13/25 Unknown Active Medications Generic Name Dose Route Start Last Admin Trade Name Freq PRN Reason Stop Dose Admin Acetaminophen 1,000 mg 07/13/25 14:00 07/14/25 04:46 Acetaminophen 500 Mg Tab PO 08/12/25 13:59 1,000 mg Q8 ALEJANDRINA Administration Aspirin 81 mg 07/14/25 09:00 07/14/25 08:07 Aspirin 81 Mg Ectab PO 08/13/25 08:59 81 mg BID ALEJANDRINA Administration Docusate Sodium 100 mg 07/13/25 21:00 07/14/25 08:06 Docusate Sodium 100 Mg Cap PO 08/12/25 20:59 Not Given BID ALEJANDRINA Insulin Aspart 0 units 07/13/25 16:30 07/14/25 08:15 Insulin Aspart Per Unit Charge SC 08/12/25 16:29 2 units ACHS ALEJANDRINA Administration Isosorbide Mononitrate 30 mg 07/14/25 09:00 07/14/25 08:06 Isosorbide [place] Extended Rel 30 Mg Tabcr PO 08/13/25 08:59 30 mg QAM ALEJANDRINA Administration Metoprolol Succinate 12.5 mg 07/13/25 21:00 07/13/25 20:41 Metoprolol Succ 25mg Ext Rel Tab PO 08/12/25 20:59 12.5 mg HS ALEJANDRINA Administration Metoprolol Succinate 25 mg 07/14/25 09:00 07/14/25 08:07 Metoprolol Succ 25mg Ext Rel Tab PO 08/13/25 08:59 25 mg QAM ALEJANDRINA Administration Multivitamins 1 tab 07/14/25 09:00 07/14/25 08:06 Multivitamin Tab PO 08/13/25 08:59 1 tab QAM ALEJANDRINA Administration Rosuvastatin Calcium 40 mg 07/14/25 09:00 07/14/25 08:06 Rosuvastatin Calcium 20 Mg Tab PO 08/13/25 08:59 40 mg QAM ALEJANDRINA Administration Sennosides 17.2 mg 07/13/25 21:00 07/13/25 20:47 Senna 8.6 Mg Tab PO 08/12/25 20:59 17.2 mg HS ALEJANDRINA Administration (2) Fracture, humerus, proximal Encounter type: initial encounter Fracture alignment: displaced Fracture morphology: other fracture Fracture type: closed Laterality: right Qualified Code(s): S42.291A - Other displaced fracture of upper end of right humerus, initial encounter for closed fracture
== END 2025-07-14 11:11 | disposition home health service (06) ==
LOC: 3E 05:16 → ASU 05:16